=== PATIENT | male | born 1995 | race Caucasian/White ===

== ENCOUNTER 2019-03-02 11:07 | Emergency (ER) | payer OTHER ==
[~2019-03-02] VITALS: Ht 170.2 cm; Wt 72.0 kg
[2019-03-02 11:16] VITALS: Ht 170.2 cm; Wt 72.0 kg
[2019-03-02] MEDS ORDERED: CIPR500T4 PO (13:57)
[2019-03-02] MEDS ORDERED: AZITHROMYCIN 500 MG TAB PO ONE (14:00)
[2019-03-02] MEDS ORDERED: CEFTRIAXONE 250 MG INJ IM ONE (14:00)
[2019-03-02 14:31] VITALS: BP 132/77; PULSE 71; RESP 17
--- NOTE | 2019-03-02 14:56 | ERD ---
ER Documentation Chief Complaint Chief Complaint ABDOMINAL PAIN AND VOMITTING STARTED TODAY HPI 24-year-old male presenting with abdominal pain and vomiting earlier today. He denies any fevers and has not used medications for symptoms. Denies any changes to urination or vomit. Denies medical problems. NKDA. Surgical history de nies. Social history denies ROS All systems reviewed and are negative except as per history of present illness. Medications Home Meds Active Scripts Ciprofloxacin Hcl* (Ciprofloxacin Hcl*) 500 Mg Tablet, 500 MG PO BID for 10 Days, TAB Prov:RENETTA STEWART PA-C 03/02/19 Allergies Allergies: Coded Allergies: No Known Allergy (Unverified , 03/02/19) PMhx/Soc Medical and Surgical Hx: pt denies Medical Hx, pt denies Surgical Hx Hx Alcohol Use: No Hx Substance Use: Yes (marijuana) Hx Tobacco Use: No Smoking Status: Never smoker FmHx Family History: No diabetes, No coronary disease, No other Physical Exam Vitals Vital Signs Date Temp Pulse Resp B/P (MAP) Pulse Ox O2 O2 Flow FiO2 Time Delivery Rate 03/02/19 98.3 71 17 132/77 98 Room Air 14:31 (95) 03/02/19 98.4 76 19 140/84 97 11:16 (102) Physical Exam GENERAL: The patient is well-appearing, well-nourished, in no acute distress HEENT: Atraumatic. Conjunctivae are pink. Pupils equal, round, and reactive to light. There is no scleral icterus. Tympanic membranes clear bilaterally. Oropharynx clear. NECK: C-spine is soft and supple. There is no meningismus. There is no cervical lymphadenopathy. CHEST: Clear to auscultation bilaterally. There are no rales, wheezes or rhonchi. HEART: Regular rate and rhythm. No murmurs, clicks, rubs or gallops. ABDOMEN:Soft, nontender and nondistended. Good bowel sounds. No rebound or guarding. No gross peritonitis. No gross organomegaly or masses. Result Diagram: 03/02/19 1308 03/02/19 1308 Results 24 hrs Laboratory Tests Test 03/02/19 12:57 03/02/19 13:08 Urine Color KYARA Urine Clarity SLIGHTLY CLOUDY Urine pH 5.0 Urine Specific Arabi 1.033 Urine Ketones 1+ mg/dL Urine Nitrite NEGATIVE mg/dL Urine Bilirubin NEGATIVE mg/dL Urine Urobilinogen 2+ mg/dL Urine Leukocyte Esterase 2+ Jaime/ul Urine Microscopic RBC 4 /HPF Urine Microscopic WBC 164 /HPF Urine Mucus MANY /HPF Urine Hemoglobin NEGATIVE mg/dL Urine Glucose NEGATIVE mg/dL Urine Total Protein 1+ mg/dl White Blood Count 8.8 10^3/ul Red Blood Count 5.51 10^6/ul Hemoglobin 16.3 g/dl Hematocrit 47.8 % Mean Corpuscular Volume 86.8 fl Mean Corpuscular Hemoglobin 29.6 pg Mean Corpuscular Hemoglobin Concent 34.1 g/dl Red Cell Distribution Width 12.3 % Platelet Count 205 10^3/UL Mean Platelet Volume 11.4 fl Immature Granulocytes % 0.600 % Neutrophils % 70.8 % Lymphocytes % 16.5 % Monocytes % 11.7 % Eosinophils % 0.1 % Basophils % 0.3 % Nucleated Red Blood Cells % 0.0 /100WBC Immature Granulocytes # 0.050 10^3/ul Neutrophils # 6.2 10^3/ul Lymphocytes # 1.5 10^3/ul Monocytes # 1.0 10^3/ul Eosinophils # 0.0 10^3/ul Basophils # 0.0 10^3/ul Nucleated Red Blood Cells # 0.0 10^3/ul Sodium Level 142 mmol/L Potassium Level 4.5 mmol/L Chloride Level 101 mmol/L Carbon Dioxide Level 32 mmol/L Anion Gap 9 Blood Urea Nitrogen 16 mg/dl Creatinine 0.80 mg/dl Est Glomerular Filtrat Rate mL/min > 60 mL/min Glucose Level 96 mg/dl Calcium Level 10.0 mg/dl Total Bilirubin 0.5 mg/dl Direct Bilirubin 0.00 mg/dl Indirect Bilirubin 0.5 mg/dl Aspartate Amino Transf (AST/SGOT) 18 IU/L Alanine Aminotransferase (ALT/SGPT) 24 IU/L Alkaline Phosphatase 63 IU/L Total Protein 7.2 g/dl Albumin 4.5 g/dl Globulin 2.70 g/dl Albumin/Globulin Ratio 1.66 Lipase 26 U/L Current Medications Medications Dose Sig/Jasen Start Time Status Last (Trade) Ordered Route PRN Stop Time Admin Dose Reason Admin Ceftriaxone 250 mg ONCE ONCE 03/02/19 DC 03/02/19 Sodium IM 14:00 03/02/19 14:16 (Rocephin) 14:01 1,000 mg ONCE ONCE 03/02/19 DC 03/02/19 Azithromycin PO 14:00 03/02/19 14:14 (Zithromax) 14:01 Procedures/MDM DIAGNOSTIC IMAGING REPORT Patient: ISMAEL SHEPPARD : 1995 Age: 24 Sex: M MR #: [id number] DOS: 03/02/19 1208 Ordering MD: OFELIA STEWART PA-C Location: [facility] Room/Bed: PROCEDURE: US Abdomen. CLINICAL INDICATION: abdominal pain TECHNIQUE: Multiple real-time images were acquired of the patient's right upper quadrant abdomen and retroperitoneum utilizing a high resolution transducer. COMPARISON: None FINDINGS: The liver demonstrates normal echogenicity. The liver is normal in size and no focal solid lesions are seen. The liver measures 15.9 cm in length. The portal vein is patent with normal direction of flow. No intrahepatic biliary dilatation is seen. No gallstones are identified within the gallbladder. There is no pericholecystic fluid or gallbladder wall thickening. The common bile duct measures 4 mm in maximal dimension. The visualized portions of the pancreas are unremarkable. The tail of the pancreas is not seen. No free fluid is identified. The right kidney is normal in size, and demonstrate normal echogenicity and cortical thickness. The right kidney measures 12.7 cm in long dimension. There is no evidence of hydronephrosis. There are no kidney stones. RPTAT: AA IMPRESSION: Unremarkable right upper quadrant abdominal ultrasound. ER Course: Rocephin and Azithromycin given in ED MDM: 24-year-old male presenting with abdominal pain and vomiting. Exam is non- concerning. Patient is to urine shows signs of infection so we will treat with antibiotics. Given patient's age range I will send a culture for gonorrhea and chlamydia and treat prophylactically. I have low suspicion for acute abdominal emergency. I have low suspicion for dehydration. I have low suspicion for meningitis or sepsis. Patient is discharged with strict ER precautions. All questions answered at discharge Departure Diagnosis: Primary Impression: UTI (urinary tract infection) Additional Impression: Abdominal pain Condition: Stable Patient Instructions: Abdominal Pain, Understanding Urinary Tract Infections (UTIs) Referrals: COMM[facility]ITY [facility] YOU HAVE RECEIVED A MEDICAL SCREENING EXAM AND THE RESULTS INDICATE THAT YOU DO NOT HAVE A CONDITION THAT REQUIRES URGENT TREATMENT IN THE EMERGENCY DEPARTMENT. FURTHER EVALUATION AND TREATMENT OF YOUR CONDITION CAN WAIT UNTIL YOU ARE SEEN IN YOUR DOCTORS OFFICE WITHIN THE NEXT 1-2 DAYS. IT IS YOUR RESPONSIBILITY TO M [facility] AN APPOINTMENT FOR FOLOW-UP CARE. IF YOU HAVE A PRIMARY DOCTOR --you should call your primary doctor and schedule an appointment IF YOU DO NOT HAVE A PRIMARY DOCTOR YOU CAN CALL OUR PHYSICIAN REFERRAL HOTLINE AT IF YOU CAN NOT AFFORD TO SEE A PHYSICIAN YOU CAN CHOSE FROM THE FOLLOWING [facility] CL[facility] [address] [facility] [address] [facility] [facility] [address] [facility] [address] [facility] [address] [facility]. [facility]. [address] [facility] Hours: 8:00 am - 5:00 pm Additional Instructions: FOLLOW UP WITH YOUR PRIMARY CARE PHYSICIAN TOMORROW.Return to this facility if you are not improving as expected. RENETTA STEWART PA-C March 02, 2019 14:55
== END 2019-03-02 14:35 | disposition home or self-care (01) ==
LOC: FTE 11:07
DX: N39.0 Urinary tract infection, site not specified (principal)
CPT/HCPCS: 36415; 76705; 80053; 81001; 83690; 85025; 87591; 96372; J0696; Z7502; Z7610